=== PATIENT | male | born 1955 | race Caucasian/White ===

== ENCOUNTER 2019-01-11 11:28 | Observation (INO) ==
--- NOTE | 2019-01-11 11:51 | Emergency Department Note ---
Disposition Clinical Impression: MDS (myelodysplastic syndrome), History of venous thrombosis, Hematuria, On anticoagulant therapy, Ureteritis, Abnormal liver function tests, Flank pain, Elevated troponin, History of coronary artery disease Disposition: Admitted As Inpatient Time of Disposition: 19:03 General Adult HPI - General Chief complaint: ED Urogenital-Male Stated complaint: urinating blood Time Seen by Provider: 01/11/19 11:48 - History of Present Illness HPI Narrative: 63-year-old male reports emergency department with concerns for hematuria and right flank pain. He is anticoagulated on eloquis secondary prior venous thr ombus. He has a known history of myelodysplastic syndrome with [id number] disease per family. The patient denies any trauma vomiting diarrhea or bleeding of any other sort. There is no history of chest pain shortness of breath or fever he has no history of kidney stones. There is no history of acute headache slurred speech facial drooping or confusion. The patient reports significant right flank pain but no history of spinal pain or weakness or numbness in the legs reported. The pain started yesterday. No history of rash noted. Pain Scale: 5 - Related Data Home Medications Medication Instructions Recorded Confirmed Acyclovir [Zovirax] 800 mg PO 0700,0 12/27/16 01/11/19 Aspirin [Lo-Dose Aspirin EC] 81 [place] 69912/27/16 01/11/19 Fluconazole [Diflucan] 400 mg PO 00 12/27/16 01/11/19 Sirolimus [Rapamune] 0.5 mg PO 00 12/27/16 01/11/19 Sulfamethoxazole/Trimeth DS 2 tab PO MOFR 12/27/16 01/11/19 [Bactrim Ds] Apixaban [Eliquis] 5 mg PO 189901/11/19 01/11/19 Calcium Carbonate/Vitamin D3 [place] [address]/11/19 01/11/19 [Calcium 500-Vit D3 400 Chew Tb] Duloxetine HCl [Cymbalta] 60 mg PO 0700 01/11/19 01/11/19 Gabapentin [Neurontin] 800 mg PO 0700,1900 01/11/19 01/11/19 Metoprolol [Lopressor] 12.5 mg PO 0700,0 01/11/19 01/11/19 Mycophenolate Mofetil [Cellcept] 1,000 mg PO 0600,1800 01/11/19 01/11/19 Repaglinide [Prandin] 1 mg PO 0700,1900 01/11/19 01/11/19 Ursodiol 250 mg PO 0700,1000,1900 01/11/19 01/11/19 levETIRAcetam [Roweepra] 1,500 mg PO 0700,1900 01/11/19 01/11/19 metFORMIN [Glucophage] 1,000 mg PO BIDWM 01/11/19 01/11/19 predniSONE [PredniSONE] 40 mg PO 0700 01/11/19 01/11/19 Allergies Allergy/AdvReac Type Severity Reaction Status Date / Time divalproex sodium Allergy Confusion Verified 01/11/19 18:52 [From Depakote] Iodinated Contrast Media Allergy Seizure Verified 01/11/19 18:52 [Iodinated Contrast Media - IV Dye] Penicillins Allergy Rash Verified 01/11/19 18:52 All systems ED: reviewed and negative except as stated. Past Medical History - Past Medical History Medical history: Reports: atrial fibrillation, cancer, coronary artery disease, hyperlipidemia, hypertension, myocardial infarction, pulmonary embolus, seizures, other Surgical history: Reports: angioplasty/stent, coronary bypass (CABG), other Psychiatric history: Reports: anxiety, depression - Social History Smoking Status: Former smoker Smokeless Tobacco Status: No Alcohol use: Reports: none Drug use: Reports: none Physical Exam - General Limitations: no limitations General appearance: alert, other (The patient appears to be uncomfortable.) - Head Head exam: atraumatic, normocephalic, normal inspection - Eye Eye exam: Present: normal appearance, PERRL, EOMI - ENT ENT exam: normal exam, normal oropharynx, mucous membranes moist, TM's normal bi laterally, normal external ear exam - Neck Neck exam: Present: normal inspection, full ROM, trachea midline - Chest Chest inspection: Present: symmetric chest wall rise. Absent: tenderness - Respiratory Respiratory exam: Present: normal lung sounds bilaterally. Absent: respiratory distress, prolonged expiratory phase - Cardiovascular Cardiovascular exam: Present: regular rate, normal rhythm, normal heart sounds - Abdominal Exam Abdominal exam: Present: soft, tenderness, normal bowel sounds. Absent: distention, guarding, rebound, rigidity Abdominal tenderness: Present: RUQ, RLQ - Extremities Exam Extremities exam: Present: normal inspection, full ROM, normal capillary refill. Absent: tenderness, pedal edema, joint swelling, calf tenderness - Expanded Lower Extremity Exam Neurovascular/Tendon exam: Absent: normal capillary refill, pulse deficit, motor deficit, sensory deficit, tendon deficit, pallor - Back Exam Back exam: Present: normal inspection, full ROM, CVA tenderness (R). Absent: tenderness, CVA tenderness (L), vertebral tenderness, rashes - Neurological Exam Neurological exam: Present: alert, oriented X3, CN II-XII intact. Absent: motor sensory deficit - Psychiatric Psychiatric exam: Present: normal affect, normal mood - Skin Skin exam: Present: warm, dry, intact, normal color Course Vital Signs Temperature 97.9 F 01/11/19 11:31 Pulse Rate 72 01/11/19 11:31 Respiratory Rate 16 01/11/19 11:31 Blood Pressure 136/79 01/11/19 11:31 O2 Sat by Pulse Oximetry 98 01/11/19 11:31 Temperature 97.9 F 01/11/19 11:39 Pulse Rate 82 01/11/19 16:44 Respiratory Rate 17 01/11/19 16:44 Blood Pressure 139/81 01/11/19 16:44 O2 Sat by Pulse Oximetry 96 01/11/19 16:44 Oxygen Delivery Oxygen Delivery Room Air Medical Decision Making - MDM Narrative Medical decision making narrative: The patient states that he was recently treated with Bactrim after visiting an urgent care regarding UTI. He describe worsening with severe right flank pain and hematuria, he is known to be anticoagulated secondary to prior venous thrombus. He has a history of myelodysplastic syndrome with fbijj-[id number]-scna disease. CT abdomen and pelvis reveals what appears to be cystitis/ureteritis. Urinalysis notably abnormal. Blood cultures and urine cultures were sent. IV access was established pain control measures were initiated, IV antibiotics were infused. The patient's allergy lists penicillins but he states he has had penicillin prior without reaction. I discussed the case with the urologist keyboard action assembler Dr. Rowland regarding the patient's apparent failed outpatient therapy, persistent hematuria, and CT findings suggestive of ureteritis and/or cystitis, we both feel it would be appropriate to admit the patient to the hospital for further care under medical service with urology consultation. The patient's BUN is elevated and CO2 is low suggestive of potential dehydration. IV fluid was ordered. I discussed the case with the hospitalist on-call who has accepted the patient to their care. The patient is highly agreeable. He is currently stable pending admission. - Lab Data Lab results reviewed: Yes I reviewed the patient's lab results. Result diagrams: 01/11/19 11:51 01/11/19 11:51 Lab Results 01/11/19 01/11/19 01/11/19 Range/Units 11:42 11:51 11:51 WBC 9.8 (4.3-11.1) K/mcL RBC 4.46 (4.19-5.50) M/mcL Hgb 14.7 (12.9-16.9) g/dL Hct 43.7 (37.5-50.1) % MCV 98.0 (83.0-100.0) fL MCH 33.0 (28.0-33.3) pg MCHC 33.6 (31.6-35.5) g/dL RDW 13.7 (11.5-14.5) % Plt Count 221 (140-400) K/mcL MPV 10.2 (9.4-12.4) fL Immature Gran % 0.6 (0-4) % Seg Neutrophils % 61.6 % Lymphocytes % 27.8 % Monocytes % 9.7 % Eosinophils % 0.2 % Basophils % 0.1 % Neutrophils # 6.0 (1.6-8.9) K/mcL Lymphocytes # 2.7 (0.6-4.6) K/mcL Monocytes # 1.0 (0.0-1.3) K/mcL Eosinophils # 0.0 (0.0-0.6) K/mcL Basophils # 0.0 (0.0-0.2) K/mcL PT (9.4-12.1) Seconds INR APTT (26.0-36.0) Seconds Sodium 134 L (136-145) mEq/L Potassium 4.4 (3.5-5.1) mEq/L Chloride 103 (98-107) mEq/L Carbon Dioxide 18 L (23-29) mEq/L BUN 30 H (8-23) mg/dL Creatinine 1.24 (0.70-1.30) mg/dL Est GFR ( Amer) > 60 (> 60) Est GFR (Non-Af Amer) 59 L (> 60) BUN/Creatinine Ratio 24 (6-26) Glucose 124 H (70-105) mg/dL Calculated Osmolality 286 (280-300) Lactic Acid (0.5-2.2) mmol/L Calcium 10.0 (8.6-10.3) mg/dL Total Bilirubin 1.6 H (0.3-1.0) mg/dL Direct Bilirubin 0.9 H (0.0-0.2) mg/dL Indirect Bilirubin 0.7 (0.0-1.2) mg/dL AST 121 H (13-39) Units/L ALT 200 H (7-52) Units/L Alkaline Phosphatase 292 H (34-104) Units/L Troponin I 0.05 H* (< 0.04) ng/mL Serum Total Protein 6.9 (6.4-8.9) g/dL Albumin 4.1 (3.5-5.7) g/dL Globulin 2.8 (2.4-3.5) g/dL Albumin/Globulin Ratio 1.5 (1.1-2.2) Urine Color Red A (Yellow) Urine Clarity Cloudy A (Clear) Urine pH 6.5 (5.0-8.0) pH Units Ur Specific [place] 1.021 (1.010-1.025) Urine Protein >=1000 H (Neg-Trace) mg/dL Urine Glucose (UA) 100 H (Normal) mg/dL Urine Ketones Negative (Negative) mg/dL Urine Blood Large H (Negative) Urine Nitrite Negative (Negative) Urine Bilirubin Small H (Negative) Urine Urobilinogen Normal (Normal) mg/dL Ur Leukocyte Esterase Small H (Negative) Urine Microscopic RBC TNTC H (0-3) per hpf Urine Microscopic WBC 5-15 H (0-3) per hpf Ur Squamous Epith Cells Few (None-Few) per lpf Ur Culture Indicated? YES A (NO) 01/11/19 01/11/19 Range/Units 11:51 12:01 WBC (4.3-11.1) K/mcL RBC (4.19-5.50) M/mcL Hgb (12.9-16.9) g/dL Hct (37.5-50.1) % MCV (83.0-100.0) fL MCH (28.0-33.3) pg MCHC (31.6-35.5) g/dL RDW (11.5-14.5) % Plt Count (140-400) K/mcL MPV (9.4-12.4) fL Immature Gran % (0-4) % Seg Neutrophils % % Lymphocytes % % Monocytes % % Eosinophils % % Basophils % % Neutrophils # (1.6-8.9) K/mcL Lymphocytes # (0.6-4.6) K/mcL Monocytes # (0.0-1.3) K/mcL Eosinophils # (0.0-0.6) K/mcL Basophils # (0.0-0.2) K/mcL PT 11.0 (9.4-12.1) Seconds INR 1.0 APTT 36.8 H (26.0-36.0) Seconds Sodium (136-145) mEq/L Potassium (3.5-5.1) mEq/L Chloride (98-107) mEq/L Carbon Dioxide (23-29) mEq/L BUN (8-23) mg/dL Creatinine (0.70-1.30) mg/dL Est GFR ( Amer) (> 60) Est GFR (Non-Af Amer) (> 60) BUN/Creatinine Ratio (6-26) Glucose (70-105) mg/dL Calculated Osmolality (280-300) Lactic Acid 2.0 (0.5-2.2) mmol/L Calcium (8.6-10.3) mg/dL Total Bilirubin (0.3-1.0) mg/dL Direct Bilirubin (0.0-0.2) mg/dL Indirect Bilirubin (0.0-1.2) mg/dL AST (13-39) Units/L ALT (7-52) Units/L Alkaline Phosphatase (34-104) Units/L Troponin I (< 0.04) ng/mL Serum Total Protein (6.4-8.9) g/dL Albumin (3.5-5.7) g/dL Globulin (2.4-3.5) g/dL Albumin/Globulin Ratio (1.1-2.2) Urine Color (Yellow) Urine Clarity (Clear) Urine pH (5.0-8.0) pH Units Ur Specific [place] (1.010-1.025) Urine Protein (Neg-Trace) mg/dL Urine Glucose (UA) (Normal) mg/dL Urine Ketones (Negative) mg/dL Urine Blood (Negative) Urine Nitrite (Negative) Urine Bilirubin (Negative) Urine Urobilinogen (Normal) mg/dL Ur Leukocyte Esterase (Negative) Urine Microscopic RBC (0-3) per hpf Urine Microscopic WBC (0-3) per hpf Ur Squamous Epith Cells (None-Few) per lpf Ur Culture Indicated? (NO) - Radiology Data Radiology results reviewed: Yes I reviewed the patient's radiology results.
[2019-01-11 12:03] LABS: Bilirubin,Urine Small (Negative); Blood,Urine Large (Negative); Glucose,Urine (UA) 100 mg/dL (Normal); Ketones,Urine Negative (Negative); Leukocyte Esterase,Urine Small (Negative); Nitrite,Urine Negative (Negative); PH,Urine 6.5 pH Units (5.0-8.0); Protein,Urine >=1000 mg/dL (Neg-Trace); Specific Gravity,Urine 1.021 (1.010-1.025); Urobilinogen,Urine Normal (Normal)
[2019-01-11 12:05] LABS: Clarity,Urine Cloudy (Clear); Color,Urine Red (Yellow)
[2019-01-11 12:06] LABS: RBC,Urine TNTC per hpf (0-3); Squamous Epithelial Cell,Urine Few per lpf (None-Few)
[2019-01-11 12:09] LABS: Basophils % 0.1 %; Eosinophils % 0.2 %; Hematocrit 43.7 % (37.5-50.1); Hemoglobin 14.7 g/dL (12.9-16.9); Immature Granulocytes % 0.6 % (0-4); Lymphocytes # 2.7 K/mcL (0.6-4.6); Lymphocytes % 27.8 %; Mean Corpuscular HGB Conc 33.6 g/dL (31.6-35.5); Mean Platelet Volume 10.2 fL (9.4-12.4); Monocytes % 9.7 %; Platelet Count 221 K/mcL (140-400); Red Blood Count 4.46 M/mcL (4.19-5.50); Red Cell Distribution Width 13.7 % (11.5-14.5); Segmented Neutrophils % 61.6 %; White Blood Count 9.8 K/mcL (4.3-11.1)
[2019-01-11 12:19] LABS: Activated Partial Thrombo Time 36.8 Seconds (26.0-36.0)
[2019-01-11] MEDS ORDERED: *HR* HYDROmorphone (PF) 1 MG/ML SYRINGE IVP ONE (12:19)
[2019-01-11] MEDS ORDERED: Ondansetron 4 MG/2 ML VIAL IVP ONE (12:20)
[2019-01-11 12:26] LABS: Alanine Aminotransferase 200 Units/L (7-52); Albumin 4.1 g/dL (3.5-5.7); Albumin/Globulin Ratio 1.5 (1.1-2.2); Alkaline Phosphatase 292 Units/L (34-104); Aspartate Amino Transferase 121 Units/L (13-39); BUN/Creatinine Ratio 24 (6-26); Bilirubin,Direct 0.9 mg/dL (0.0-0.2); Bilirubin,Indirect 0.7 mg/dL (0.0-1.2); Bilirubin,Total 1.6 mg/dL (0.3-1.0); Blood Urea Nitrogen 30 mg/dL (8-23); Carbon Dioxide 18 mEq/L (23-29); Chloride 103 mEq/L (98-107); Globulin 2.8 g/dL (2.4-3.5); Glucose 124 mg/dL (70-105); Osmolality,Calculated 286 (280-300); Potassium 4.4 mEq/L (3.5-5.1); Sodium 134 mEq/L (136-145); Total Protein 6.9 g/dL (6.4-8.9); eGFR For African Americans > 60 (> 60); eGFR For Non-African Americans 59 (> 60)
[2019-01-11 13:01] LABS: Troponin I 0.05 ng/mL (< 0.04)
[2019-01-11] MEDS ORDERED: cefTRIAXone 1,000 MG in Water for inj. (sterile) 10 ML IVP ONE (15:04)
--- NOTE | 2019-01-11 15:54 | Internal Med History&Physical ---
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 Blood in urine started 6 days ago (last ), at same time of mild dysuria. Patient denies ever seeing any clots, but does state that dysuria/burning has increased in intensity and he's noticed feeling like having to urinate numerous times day and night but only a little comes out. Seems dark red to dark brown tea/coffee colored urine. No fevers. Pain did start to move over to his right side and back on Thursday, so his daughter made him go to urgent In the ED, vitals T97.9, HR 70s, RR 16, SBP 110-140s, satting 96+% on RA. Labs notable for wbc 10, hb 15, plt 220, inr 1, na 134, co2 18, bun 30, cr 1.24, Tbili 1.6, Dbili 0.9 CT a/p suggests cystitis w R-sided ureteritis. PMH: as above PSH: cervical fusion, cabg, a-fib ablation SH: former smoker, disabled FH: female organ cancer in mother, colon cancer in father Past Med Surg Social Fam HX - Past Medical History Medical history: atrial fibrillation, cancer, coronary artery disease, hyperlipidemia, hypertension, myocardial infarction, pulmonary embolus, seizures, other Additional medical history: sinus ronda cardia Psychiatric history: anxiety, depression - Past Surgical History Surgical History: angioplasty/stent, coronary bypass (CABG), other Additional surgical history: STEM CELL PLACEMENT - Social History Smoking Status: Former smoker Smokeless Tobacco Status: No Alcohol use: none Drug use: none Internal Medicine - H&P: Meds Acyclovir [Zovirax] 800 mg PO BID 12/27/16 [History] Aspirin [Lo-Dose Aspirin EC] 81 mg PO DAILY 12/27/16 [History] Fluconazole [Diflucan] 400 mg PO DAILY 12/27/16 [History] Gabapentin [Neurontin] 400 mg PO BID 12/27/16 [History] Sirolimus [Rapamune] 0.5 mg PO QAM 12/27/16 [History] Sulfamethoxazole/Trimeth DS [Bactrim Ds] 1 tab PO MOFR 12/27/16 [History] predniSONE [PredniSONE] 40 mg PO DAILY 12/27/16 [History] Apixaban [Eliquis] 5 mg PO BID 01/11/19 [History] Calcium Carbonate/Vitamin D3 [Calcium Petites Softgel] 01/11/19 [History] Duloxetine HCl [Cymbalta] 60 mg PO DAILY 01/11/19 [History] Insulin Glargine,Hum.rec.anlog [Toujeo Solostar] 20 units SQ QPM 01/11/19 [History] Loratadine [Claritin] 10 mg PO DAILY 01/11/19 [History] Metoprolol [Lopressor] 12.5 mg PO BID 01/11/19 [History] Repaglinide [Prandin] 2 mg PO TIDWM 01/11/19 [History] Umeclidinium Brm/Vilanterol Tr [Anoro Ellipta 62.5-25 Mcg INH] 1 each IH DAILY 01/11/19 [History] Ursodiol 250 mg PO TID 01/11/19 [History] levETIRAcetam [Roweepra] 1,500 mg PO BID 01/11/19 [History] metFORMIN [Glucophage] 1,000 mg PO BIDWM 01/11/19 [History] Allergy/AdvReac Type Severity Reaction Status Date / Time Iodinated Contrast Media Allergy Rash Verified 01/11/19 11:33 [Iodinated Contrast Media - IV Dye] Penicillins Allergy Rash Verified 01/11/19 11:33 All Systems PM: A 10-system review of systems was performed and is negative for pertinent findings except as documented above in the HPI. - Constitutional Vitals: Temp Pulse Resp BP Pulse Ox 97.9 F 76 16 111/83 96 01/11/19 11:39 01/11/19 15:11 01/11/19 15:11 01/11/19 15:11 01/11/19 15:11 Exam: General: NAD, good eye contact, chronically ill appearing, wearing sunglasses Head: Atraumatic, normocephalic. Face symmetric Eyes: EOMI, sclerae w mild icterus and injection ENT: Mucous membranes moist. Normal oral mucosa. Trachea midline. No cervical lymphadenopathy. Thoracic: No visible chest wall deformities. Normal breath sounds b/l, no wheezing or crackles Cardio: Normal S1 and S2, regular rate and rhythm. Does have faint systolic murmur Abdomen: Soft, mildly tender RLQ, nondistended. Bowel sounds present. No rebound. No HSM Extremities: Warm, well perfused. DP pulses 2+ b/l. No clubbing, cyanosis. No edema Skin: Intact. No rashes, bruises, or ulcers Neuro: Awake, fully oriented. Good memory, concentration, attention. Speech fluent. CN II-XII grossly intact. Strength 5/5 in b/l UE and LE Internal Med - H&P Results - Labs CBC & Chem 7: 01/11/19 11:51 01/11/19 11:51 Labs: Short CBC 01/11/19 Range/Units 11:51 WBC 9.8 (4.3-11.1) K/mcL Hgb 14.7 (12.9-16.9) g/dL Hct 43.7 (37.5-50.1) % Plt Count 221 (140-400) K/mcL Neutrophils # 6.0 (1.6-8.9) K/mcL BMP 01/11/19 11:51 Sodium 134 L Potassium 4.4 Chloride 103 Carbon Dioxide 18 L BUN 30 H Creatinine 1.24 Glucose 124 H Calcium 10.0 Cardiac Enzymes 01/11/19 Range/Units 11:51 Troponin I 0.05 H* (< 0.04) ng/mL Liver Function 01/11/19 Range/Units 11:51 Total Bilirubin 1.6 H (0.3-1.0) mg/dL Direct Bilirubin 0.9 H (0.0-0.2) mg/dL AST 121 H (13-39) Units/L ALT 200 H (7-52) Units/L Alkaline Phosphatase 292 H (34-104) Units/L Albumin 4.1 (3.5-5.7) g/dL Urine 01/11/19 Range/Units 11:42 Urine Color Red A (Yellow) Urine Clarity Cloudy A (Clear) Urine pH 6.5 (5.0-8.0) pH Units Ur Specific [place] 1.021 (1.010-1.025) Urine Protein >=1000 H (Neg-Trace) mg/dL Urine Glucose (UA) 100 H (Normal) mg/dL - Impressions ITS Impressions Chest X-Ray 01/11/19 13:31 IMPRESSION: No acute cardiopulmonary disease. D/ / Ivania Nunn MD / Ivania Nunn MD Interpreting Provider: Ivania Nunn MD Abdomen/Pelvis CT 01/11/19 13:39 IMPRESSION: Findings suggesting cystitis with right-sided ureteritis. 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 Hematuria: CT suggestive of cystitis/ureteritis, UA equivocal, and with symptoms definitely suggesting complicated UTI as cause. Less likely manifestation of GVH (less commonly renal and usually nephritis). - UCx - Rocephin 1g daily - continue eliquis - NS 1L bolus then MIVF - Onc consult Anion gap metabolic acidosis: HCO3 18, gap 13, lactate up to 2 but no hypotension/hypoxia/hypoglycemia. 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
[2019-01-11] MEDS ORDERED: 0.9 % Sodium Chloride 1,000 ML IVC ONE (16:13)
[2019-01-11] MEDS ORDERED: Naloxone 0.4 MG/ML INJ IVP PRN (16:17)
[2019-01-11] MEDS ORDERED: Acetaminophen 325 MG TABLET PO PRN (16:17)
[2019-01-11] MEDS ORDERED: Ondansetron 4 MG/2 ML VIAL IVP PRN (16:17)
[2019-01-11 19:51] LABS: Acetaminophen < 10 mcg/mL (10-20); Lipase 111 Units/L (11-82)
[2019-01-11 20:16] LABS: Hepatitis B Surface Antigen Nonreactive (Nonreactive)
[2019-01-11] MEDS ORDERED: Dextrose Gel 15 GM/37.5 ML TUBE PO PRN ×2 (20:44)
[2019-01-11] MEDS ORDERED: *HR* Dextrose 50 % in Water (Syg) 50 ML SYRINGE IVP PRN (20:44)
[2019-01-11] MEDS ORDERED: D5% in Water 1,000 ML IVC PRN (20:44)
[2019-01-11 20:45] LABS: Hepatitis B Core IgM Nonreactive (Nonreactive); Hepatitis C Virus Antibody Nonreactive (Nonreactive)
[2019-01-11 20:46] LABS: Hepatitis A Antibody IgM Nonreactive (Nonreactive)
[2019-01-11] MEDS ORDERED: traMADol 50 MG TABLET PO ONE (20:47)
[2019-01-11] MEDS: levETIRAcetam 250 MG TABLET PO SCH (21:32)
[2019-01-11] MEDS: Apixaban 5 MG TABLET PO SCH (21:33)
[2019-01-11] MEDS: Gabapentin 400 MG CAPSULE PO SCH (21:33)
[2019-01-11] MEDS: Insulin LISPRO 300 UNITS/3 ML VIAL SQ SCH (21:34)
[2019-01-11] MEDS: Insulin DETEMIR 100 UNIT/ML X5UNITS SQ SCH (21:34)
[2019-01-11] MEDS: 0.9 % Sodium Chloride 1,000 ML IVC SCH (21:37)
[2019-01-12] MEDS ORDERED: traMADol 50 MG TABLET PO ONE (02:12)
[2019-01-12 04:39] LABS: Hematocrit 40.5 % (37.5-50.1); Hemoglobin 13.4 g/dL (12.9-16.9); Mean Corpuscular HGB Conc 33.1 g/dL (31.6-35.5); Mean Corpuscular Hemoglobin 32.8 pg (28.0-33.3); Mean Corpuscular Volume 99.3 fL (83.0-100.0); Mean Platelet Volume 10.4 fL (9.4-12.4); Platelet Count 184 K/mcL (140-400); Red Blood Count 4.08 M/mcL (4.19-5.50); Red Cell Distribution Width 13.8 % (11.5-14.5)
[2019-01-12 04:46] LABS: Prothrombin Time 11.4 Seconds (9.4-12.1)
[2019-01-12 05:02] LABS: Alanine Aminotransferase 163 Units/L (7-52); Albumin 3.5 g/dL (3.5-5.7); Albumin/Globulin Ratio 1.5 (1.1-2.2); Alkaline Phosphatase 254 Units/L (34-104); Aspartate Amino Transferase 95 Units/L (13-39); BUN/Creatinine Ratio 28 (6-26); Bilirubin,Direct 0.6 mg/dL (0.0-0.2); Bilirubin,Indirect 0.6 mg/dL (0.0-1.2); Bilirubin,Total 1.2 mg/dL (0.3-1.0); Blood Urea Nitrogen 29 mg/dL (8-23); Calcium 9.1 mg/dL (8.6-10.3); Carbon Dioxide 19 mEq/L (23-29); Chloride 105 mEq/L (98-107); Globulin 2.4 g/dL (2.4-3.5); Glucose 154 mg/dL (70-105); Osmolality,Calculated 293 (280-300); Potassium 3.9 mEq/L (3.5-5.1); Sodium 137 mEq/L (136-145); Total Protein 5.9 g/dL (6.4-8.9); Troponin I 0.03 ng/mL (< 0.04); eGFR For African Americans > 60 (> 60); eGFR For Non-African Americans > 60 (> 60)
[2019-01-12] MEDS: 0.9 % Sodium Chloride 1,000 ML IVC SCH (05:20)
[2019-01-12] MEDS ORDERED: 0.9 % Sodium Chloride 500 ML IVC ONE (07:42)
--- NOTE | 2019-01-12 07:47 | Internal Med Progress Note ---
Hospitalist Progress Note - Encounter Date of Encounter: 01/12/19 Time of Encounter: 07:45 - Subjective Interval History: Patient feels relatively well today. Did have some ongoing mild RLQ pain improved w tramadol. Still has dark urine and urgency although no clots and no fevers. No SOB, CP, leg swelling, N/V/D. - Exam Vitals: Temp Pulse Resp BP Pulse Ox 97.8 F 69 17 105/64 98 01/12/19 06:56 01/12/19 06:56 01/12/19 06:56 01/12/19 06:56 01/12/19 06:56 Exam: General: NAD, good eye contact, chronically ill appearing, wearing sunglasses Thoracic: Normal breath sounds b/l, no wheezing or crackles Cardio: Normal S1 and S2, regular rate and rhythm. Does have faint systolic murmur Abdomen: Soft, mildly tender RLQ, nondistended Extremities: Warm, well perfused. DP pulses 2+ b/l. No edema Skin: Intact. No rashes, bruises, or ulcers Neuro: Awake, fully oriented. Good memory, concentration, attention. Speech fluent. 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 Hematuria: CT suggestive of cystitis/ureteritis, UA equivocal, and with symptoms definitely suggesting complicated UTI as cause. Less likely manifestation of GVH (less commonly renal and usually nephritis). Urine still dark today although no clots and not grossly bloody (is tea colored) - UCx pending - Rocephin 1g daily - continue eliquis - Onc consult Anion gap metabolic acidosis: still gap 13 and lactate 2 despite no hypo tension/hypoxia/hypoglycemia and after fluid bolus and maintenance and improving AD - will give additional 500cc bolus, continue MIVF, and trend lactate today AD: Baseline Cr ~0.6-0.7, on admit was 1.25, suspect 2/2 bactrim. Improving today. - stop bactrim and monitor Direct hyperbilirubinemia: w elevated alkphos and transaminitis 200/120, CT a/p w/o mention of hepatic or biliary ductal abnormality, has known GVH. RUQ US showing normal echogenicity of liver, no ductal dilation. 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 - hold acyclovir and fluconazole for now - continue prednisone 40 (slow taper per [facility]), rapamune 0.5 daily, and myfortic 1k bid - home ursodiol CAD s/p CABG, HLD, CVA: home ASA, DM2: home insulin, +SSI HTN: SBP 130-140s, home lopressor Epilepsy: home keppra 1.5k bid A-Flutter: AC on eliquis, rate on lopressor 12.5 bid Hx PE: remote Anx/dep: home Chronic pain s/p cervical fusion: home gabapentin 400 bid, Obesity: BMI 30 PPx: SCDs Tele: no Activity: up ad shyanne FEN: ADA, MIVF NS@125 Lines: PIV Consults: Onc Code: Full Dispo: obs for complicated UTI causing hematuria and gap acidosis, anticipate 1- 2 days, will be homegoing Internal Medicine: Result - Labs CBC & Chem 7: 01/12/19 04:20 01/12/19 04:20 Labs: Short CBC 01/11/19 01/12/19 Range/Units 11:51 04:20 WBC 9.8 10.0 (4.3-11.1) K/mcL Hgb 14.7 13.4 (12.9-16.9) g/dL Hct 43.7 40.5 (37.5-50.1) % Plt Count 221 184 (140-400) K/mcL Neutrophils # 6.0 (1.6-8.9) K/mcL BMP 01/11/19 01/12/19 11:51 04:20 Sodium 134 L 137 Potassium 4.4 3.9 Chloride 103 105 Carbon Dioxide 18 L 19 L BUN 30 H 29 H Creatinine 1.24 1.02 Glucose 124 H 154 H Calcium 10.0 9.1 Cardiac Enzymes 01/11/19 01/12/19 Range/Units 11:51 04:20 Troponin I 0.05 H* 0.03 (< 0.04) ng/mL Liver Function 01/11/19 01/12/19 Range/Units 11:51 04:20 Total Bilirubin 1.6 H 1.2 H (0.3-1.0) mg/dL Direct Bilirubin 0.9 H 0.6 H (0.0-0.2) mg/dL AST 121 H 95 H (13-39) Units/L ALT 200 H 163 H (7-52) Units/L Alkaline Phosphatase 292 H 254 H (34-104) Units/L Albumin 4.1 3.5 (3.5-5.7) g/dL Urine 01/11/19 Range/Units 11:42 Urine Color Red A (Yellow) Urine Clarity Cloudy A (Clear) Urine pH 6.5 (5.0-8.0) pH Units Ur Specific [place] 1.021 (1.010-1.025) Urine Protein >=1000 H (Neg-Trace) mg/dL Urine Glucose (UA) 100 H (Normal) mg/dL - ABG Interpretation ABG results: PT/INR, D-dimer PT 11.4 Seconds (9.4-12.1) 01/12/19 04:20 - Impressions Impressions Chest X-Ray 01/11/19 13:31 IMPRESSION: No acute cardiopulmonary disease. D/ / Ivania Nunn MD / Ivania Nunn MD Interpreting Provider: Ivania Nunn MD Abdomen/Pelvis CT 01/11/19 13:39 IMPRESSION: Findings suggesting cystitis with right-sided ureteritis. Correlate with any clinical findings of urinary infection D/ / Richard Bahena MD / Richard Bahena MD Interpreting Provider: Richard Bahena MD Liver Ultrasound 01/11/19 19:41 IMPRESSION: Gallbladder wall thickening. No additional signs of acute cholecystitis. Findings are indeterminate. There is concern for acute cholecystitis. Hepatic biliary scan may be helpful for further evaluation. Multiple gallbladder wall polyps measuring up to 7 mm. Consider follow-up versus potential cholecystectomy. D/ / 01/11/2019 19:51:17 Asael Rubio MD / dasha Interpreting Provider: Asael Rubio MD Consult Discharge Plan - Plan Referrals: Josse Alfonso DO [Primary Care Provider] -
[2019-01-12] MEDS ORDERED: NON-FORMULARY MEDICATION 1 EACH EACH (Umeclidinium Brm/Vilanterol Tr [Anoro Ellipta 62.5-2 IH SCH (09:00)
[2019-01-12] MEDS: levETIRAcetam 250 MG TABLET PO SCH ×2 (09:19→21:07)
[2019-01-12] MEDS: Aspirin Enteric Coated 81 MG Tablet PO SCH (09:19)
[2019-01-12] MEDS: predniSONE 20 MG TABLET PO SCH (09:22)
[2019-01-12] MEDS: Apixaban 5 MG TABLET PO SCH ×2 (09:23→21:06)
[2019-01-12] MEDS: Loratadine 10 MG TABLET PO SCH (09:23)
[2019-01-12] MEDS: Gabapentin 400 MG CAPSULE PO SCH ×2 (09:24→21:06)
[2019-01-12] MEDS: cefTRIAXone 1,000 MG in Water for inj. (sterile) 10 ML IVP SCH (09:24)
[2019-01-12] MEDS: Insulin LISPRO 300 UNITS/3 ML VIAL SQ SCH ×4 (09:38→17:46)
[2019-01-12] MEDS ORDERED: Acetaminophen 325 MG TABLET PO PRN (10:29)
[2019-01-12] MEDS ORDERED: traMADol 50 MG TABLET PO PRN (10:29)
--- NOTE | 2019-01-12 10:31 | Electrocardiograph Report ---
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
--- NOTE | 2019-01-12 12:46 | Oncology Inp Consult Note ---
<Marilynn Griffin - Last Filed: 01/12/19 15:51> Date of Encounter: 01/12/19 Time of Encounter: 12:43 Assessment and Plan (1) MDS (myelodysplastic syndrome) Status: Acute Assessment and plan: Follows with Dr. Dutta at [facility] with next appointment on 01/18/19. 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 Notes that is at home and should receive JAKAFI today. Plan: Continue home medications: Cellcept, prednisone, sirolimus, and urosidol Patient's prophylaxis with acyclovir and fluconazole on hold due to AD. Resume with improvement in kidney function. (2) Hematuria Status: Acute Assessment and plan: Presented with hematuria and abdominal pain and history of GVHD Plan: Check BK virus, CMV, and adenovirus PCR Qualifiers: Qualified Code(s): R31.9 - Hematuria, unspecified - Data of Consult Patient: new to practice Consult date: 01/11/19 Requesting Physician: Brenton Toribio Primary Care Provider: Josse Alfonso DO - Consult Narrative Reason for consult: MDS s/p SCT 2017, GVHD ocular/liver, now with hematuria History of present illness: Dread Alfonso, a 63 male with . He presented to the emergency room on 01/11/19 due to concerns for dark red and tea-colored urine, RLQ abdominal pain, urinary frequency, and dysuria. He denies fever, chills, or night sweats. He denies nausea, vomiting, diarrhea, or constipation. He has a history of DM2 and blood sugars have been elevated with prednisone. He notes chronic peripheral n europathy. Oncology was consulted on 01/11/19 due to Mr. Alfonso's history of MDS s/p peripheral blood stem cell transplant at [facility] on 10/13/16 and GVHD (ocular and liver) diagnosed this summer with increased LFt's and bilirubin in Aug, 2018 and liver biopsy on 10/12/18. He is continues on prednisone 40 mg PO daily, Cellcept 1000 mg PO BID, and sirolimus 0.5 mg PO daily for immunosu ppression. [facility] plans to wean steroids once patient has JAKAFI (ruxolitinib) for acute GVHD. He is also taking ursodiol and is using his home dose while hospitalized. He is waiting for LOLISI to be delivered to his home this afternoon and is planned to follow-up at [facility] (Dr. Dutta) on Friday, January 18, 2019. Prophylaxis: Bactrim, acyclovir, and fluconazole Social: Denies alcohol use. Former smoker. No current tobacco use. Denies illicit drug use. Lives in [place], [place] with his Past Med Surg Social Fam HX - Past Medical History Medical history: atrial fibrillation, cancer, coronary artery disease, hyperlipidemia, hypertension, myocardial infarction, pulmonary embolus, seizures, other Additional medical history: Wears sunglasses per doctor d/t eye issues with MDS "feels like sand in eyes" Psychiatric history: anxiety, depression - Past Surgical History Surgical History: angioplasty/stent, coronary bypass (CABG), other Additional surgical history: STEM CELL PLACEMENT - Social History Smoking Status: Former smoker Smokeless Tobacco Status: No Alcohol use: none Drug use: none Medications and Allergies Acyclovir [Zovirax] 800 mg PO 0700,189912/27/16 [History] Aspirin [Lo-Dose Aspirin EC] 81 [place] 69912/27/16 [History] Fluconazole [Diflucan] 400 [place] 69912/27/16 [History] Sirolimus [Rapamune] 0.5 mg PO 69912/27/16 [History] Sulfamethoxazole/Trimeth DS [Bactrim Ds] 2 tab PO MOFR 12/27/16 [History] Apixaban [Eliquis] 5 mg PO 189901/11/19 [History] Calcium Carbonate/Vitamin D3 [Calcium 500-Vit D3 400 Chew Tb] 1 tab PO 69901/11/19 [History] Duloxetine HCl [Cymbalta] 60 mg PO 69901/11/19 [History] Gabapentin [Neurontin] 800 mg PO 0700,189901/11/19 [History] Metoprolol [Lopressor] 12.5 mg PO 0700,189901/11/19 [History] Mycophenolate Mofetil [Cellcept] 1,000 mg PO 0600,1800 01/11/19 [History] Repaglinide [Prandin] 1 mg PO 0700,1900 01/11/19 [History] Ursodiol 250 mg PO 0700,1000,1900 01/11/19 [History] levETIRAcetam [Roweepra] 1,500 mg PO 0700,1900 01/11/19 [History] metFORMIN [Glucophage] 1,000 mg PO BIDWM 01/11/19 [History] predniSONE [PredniSONE] 40 mg PO 0700 01/11/19 [History] Allergy/AdvReac Type Severity Reaction Status Date / Time divalproex sodium Allergy Confusion Verified 01/11/19 18:52 [From Depakote] Iodinated Contrast Media Allergy Seizure Verified 01/11/19 18:52 [Iodinated Contrast Media - IV Dye] Penicillins Allergy Rash Verified 01/11/19 18:52 Constitutional: Present: fatigue, increased appetite. Absent: chills, fever(s) Eyes: Present: photophobia Cardiovascular: Absent: chest pain Respiratory: Absent: cough, dyspnea Gastrointestinal: Present: abdominal pain. Absent: constipation, diarrhea, hematemesis, hematochezia, melena, nausea, vomiting Genitourinary: Present: dysuria, urinary frequency Neurological: Present: numbness. Absent: syncope Hematologic/Lymphatic: Absent: lymphadenopathy Oncology - Exam - Head Head exam: Present: normal inspection, normocephalic - Eye Additional comments: wearing sunglasses - Respiratory Respiratory exam: Present: decreased breath sounds, CTAB - Cardiovascular Cardiovascular exam: Present: irregular rhythm, RRR - GI/Abdominal GI/Abdominal exam: Present: normal bowel sounds, soft. Absent: tenderness - Additional comments: hematuria - Extremities Exam Extremities exam: Absent: pedal edema, tenderness - Neurological Exam Neurological exam: Present: alert, oriented X3 - Psychiatric Psychiatric exam: Present: normal affect, normal mood - Skin Skin exam: Present: dry, warm Oncology Inpatient Results Labs: Laboratory Results - last 24 hr 01/11/19 01/11/19 01/11/19 11:51 11:51 20:27 WBC RBC Hgb Hct MCV MCH MCHC RDW Plt Count MPV PT INR Sodium 134 L Potassium 4.4 Chloride 103 Carbon Dioxide 18 L BUN 30 H Creatinine 1.24 Est GFR ( Amer) > 60 Est GFR (Non-Af Amer) 59 L BUN/Creatinine Ratio 24 Glucose 124 H POC Glucose 203 H Calculated Osmolality 286 Lactic Acid Calcium 10.0 Magnesium Total Bilirubin 1.6 H Direct Bilirubin 0.9 H Indirect Bilirubin 0.7 AST 121 H ALT 200 H Alkaline Phosphatase 292 H Troponin I 0.05 H* Serum Total Protein 6.9 Albumin 4.1 Globulin 2.8 Albumin/Globulin Ratio 1.5 Lipase 111 H Beta-Hydroxybutyric Acd Acetaminophen < 10 L Hepatitis A IgM Ab Nonreactive Hep Bs Antigen Nonreactive Hep B Core IgM Ab Nonreactive Hepatitis C Ab Screen Nonreactive 01/12/19 01/12/19 01/12/19 04:20 04:20 04:20 WBC 10.0 RBC 4.08 L Hgb 13.4 Hct 40.5 MCV 99.3 MCH 32.8 MCHC 33.1 RDW 13.8 Plt Count 184 MPV 10.4 PT 11.4 INR 1.0 Sodium 137 Potassium 3.9 Chloride 105 Carbon Dioxide 19 L BUN 29 H Creatinine 1.02 Est GFR ( Amer) > 60 Est GFR (Non-Af Amer) > 60 BUN/Creatinine Ratio 28 H Glucose 154 H POC Glucose Calculated Osmolality 293 Lactic Acid Calcium 9.1 Magnesium 2.0 Total Bilirubin 1.2 H Direct Bilirubin 0.6 H Indirect Bilirubin 0.6 AST 95 H ALT 163 H Alkaline Phosphatase 254 H Troponin I 0.03 Serum Total Protein 5.9 L Albumin 3.5 Globulin 2.4 Albumin/Globulin Ratio 1.5 Lipase Beta-Hydroxybutyric Acd Acetaminophen Hepatitis A IgM Ab Hep Bs Antigen Hep B Core IgM Ab Hepatitis C Ab Screen 01/12/19 01/12/19 01/12/19 04:20 08:05 12:21 WBC RBC Hgb Hct MCV MCH MCHC RDW Plt Count MPV PT INR Sodium Potassium Chloride Carbon Dioxide BUN Creatinine Est GFR ( Amer) Est GFR (Non-Af Amer) BUN/Creatinine Ratio Glucose POC Glucose Calculated Osmolality Lactic Acid 2.3 H 1.2 1.5 Calcium Magnesium Total Bilirubin Direct Bilirubin Indirect Bilirubin AST ALT Alkaline Phosphatase Troponin I Serum Total Protein Albumin Globulin Albumin/Globulin Ratio Lipase Beta-Hydroxybutyric Acd Acetaminophen Hepatitis A IgM Ab Hep Bs Antigen Hep B Core IgM Ab Hepatitis C Ab Screen 01/12/19 01/12/19 12:21 12:21 WBC RBC Hgb Hct MCV MCH MCHC RDW Plt Count MPV PT INR Sodium 137 Potassium 4.0 Chloride 106 Carbon Dioxide 20 L BUN 29 H Creatinine 1.06 Est GFR ( Amer) > 60 Est GFR (Non-Af Amer) > 60 BUN/Creatinine Ratio 27 H Glucose 181 H POC Glucose Calculated Osmolality 294 Lactic Acid Calcium 8.7 Magnesium Total Bilirubin Direct Bilirubin Indirect Bilirubin AST ALT Alkaline Phosphatase Troponin I Serum Total Protein Albumin Globulin Albumin/Globulin Ratio Lipase Beta-Hydroxybutyric Acd 0.17 Acetaminophen Hepatitis A IgM Ab Hep Bs Antigen Hep B Core IgM Ab Hepatitis C Ab Screen Chest X-Ray 01/11/19 13:31 IMPRESSION: No acute cardiopulmonary disease. D/ / Ivania Nunn MD / Ivania Nunn MD Interpreting Provider: Ivania Nunn MD Abdomen/Pelvis CT 01/11/19 13:39 IMPRESSION: Findings suggesting cystitis with right-sided ureteritis. Correlate with any clinical findings of urinary infection D/ / Richard Bahena MD / Richard Bahena MD Interpreting Provider: Richard Bahena MD Liver Ultrasound 01/11/19 19:41 IMPRESSION: Gallbladder wall thickening. No additional signs of acute cholecystitis. Findings are indeterminate. There is concern for acute cholecystitis. Hepatic biliary scan may be helpful for further evaluation. Multiple gallbladder wall polyps measuring up to 7 mm. Consider follow-up versus potential cholecystectomy. D/ / 01/11/2019 19:51:17 Asael Rubio MD / dasha Interpreting Provider: Asael Rubio MD Consult Discharge Plan - Plan Referrals: Josse Alfonso DO [Primary Care Provider] - Inpatient Charges Provider: Dr. Norris Cabral <Coleman Cabral - Last Filed: 01/12/19 17:18> Date of Encounter: 01/12/19 - Data of Consult Requesting Physician: Brenton Toribio Primary Care Provider: Josse Alfonso DO - Consult Narrative History of present illness: Patient interviewed bedside, hx of MDS s/p RX and SCT at [facility] '17, recent f/u notes revieewd With GVHD liver and eyes, is going to start JAKAFI soon. Hematuria/cystitis possible, labs nl. On eliquis for SVT. R/O Adeno/BK virus post transplant setting. He is in remission with regards to MDS. Empric Rx UTI, pending routine cx. He does not want a transfer to [facility] at this time, is to follow up at [facility] next wk I examined this patient and my medical decision-making was reviewed with the Advanced Practice Nurse, Marilynn Griffin. I agree with the documented findings, disposition and treatment plan as described except to the extent set forth below. Inpatient Charges Provider: Dr. Norris Cabral Consult - Inpatient: [id number]
[2019-01-12 12:59] LABS: BUN/Creatinine Ratio 27 (6-26); Blood Urea Nitrogen 29 mg/dL (8-23); Calcium 8.7 mg/dL (8.6-10.3); Carbon Dioxide 20 mEq/L (23-29); Chloride 106 mEq/L (98-107); Glucose 181 mg/dL (70-105); Osmolality,Calculated 294 (280-300); Sodium 137 mEq/L (136-145); eGFR For African Americans > 60 (> 60); eGFR For Non-African Americans > 60 (> 60)
[2019-01-12] MEDS: Artificial Tears SOLN 15 ML BOTTLE BOTH EYES SCH (20:54)
[2019-01-12] MEDS: Insulin DETEMIR 100 UNIT/ML X5UNITS SQ SCH (21:08)
[2019-01-13 05:11] LABS: Hematocrit 40.1 % (37.5-50.1); Hemoglobin 13.5 g/dL (12.9-16.9); Mean Corpuscular HGB Conc 33.7 g/dL (31.6-35.5); Mean Corpuscular Hemoglobin 33.3 pg (28.0-33.3); Mean Platelet Volume 10.5 fL (9.4-12.4); Platelet Count 177 K/mcL (140-400); Red Blood Count 4.05 M/mcL (4.19-5.50); Red Cell Distribution Width 13.6 % (11.5-14.5); White Blood Count 8.1 K/mcL (4.3-11.1)
[2019-01-13 05:33] LABS: Alanine Aminotransferase 167 Units/L (7-52); Albumin 3.7 g/dL (3.5-5.7); Albumin/Globulin Ratio 1.3 (1.1-2.2); Alkaline Phosphatase 266 Units/L (34-104); Aspartate Amino Transferase 103 Units/L (13-39); BUN/Creatinine Ratio 33 (6-26); Bilirubin,Direct 0.7 mg/dL (0.0-0.2); Bilirubin,Indirect 0.6 mg/dL (0.0-1.2); Bilirubin,Total 1.3 mg/dL (0.3-1.0); Blood Urea Nitrogen 28 mg/dL (8-23); Carbon Dioxide 21 mEq/L (23-29); Chloride 106 mEq/L (98-107); Globulin 2.8 g/dL (2.4-3.5); Glucose 108 mg/dL (70-105); Osmolality,Calculated 296 (280-300); Potassium 3.9 mEq/L (3.5-5.1); Sodium 140 mEq/L (136-145); Total Protein 6.5 g/dL (6.4-8.9); eGFR For African Americans > 60 (> 60); eGFR For Non-African Americans > 60 (> 60)
[2019-01-13 07:20] VITALS: BP 134/92
[2019-01-13] MEDS: Insulin LISPRO 300 UNITS/3 ML VIAL SQ SCH (07:41)
[2019-01-13] MEDS: Apixaban 5 MG TABLET PO SCH (09:43)
[2019-01-13] MEDS: cefTRIAXone 1,000 MG in Water for inj. (sterile) 10 ML IVP SCH (09:43)
[2019-01-13] MEDS: Loratadine 10 MG TABLET PO SCH (09:44)
[2019-01-13] MEDS: predniSONE 20 MG TABLET PO SCH (09:44)
[2019-01-13] MEDS: Aspirin Enteric Coated 81 MG Tablet PO SCH (09:44)
[2019-01-13] MEDS: Gabapentin 400 MG CAPSULE PO SCH (09:44)
[2019-01-13] MEDS: Artificial Tears SOLN 15 ML BOTTLE BOTH EYES SCH (09:45)
[2019-01-13] MEDS: levETIRAcetam 250 MG TABLET PO SCH (09:45)
--- NOTE | 2019-01-13 11:17 | Discharge Summary ---
- NOTES TO OUTPATIENT PROVIDER Notes to Outpatient Provider: 63M w hx MDS s/p SCT '17 @[facility] c/b GVH on IS, presented with dysuria and hematuria. CT showing cystitis and R ureteritis. UCx no growth, and no fever or leukocytosis. Did have mild AD and gap acidosis which improved w fluids and holding bactrim. Onc consult - sent labs for BK, CMV, adeno. Eliquis held. No change in symptoms at discharge but not worsening and no blood clots in urine; will d/c on keflex until outpatient [facility] Onc appt in 5 days. Orders not resulted at time of discharge: 01/12/19 12:41 Adenovirus Qualitative PCR Routine CMV Qualitative PCR (pos neg) Routine BK Virus DNA, Quantitative Routine Date of Encounter: 01/13/19 Time of Encounter: 11:14 Hospital course: Dear Doctors, I recently had the opportunity to care for this patient during their recent hospital stay at [facility]. 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 He denied any fevers and not passing clots in urine. In the ED, CT showing cystitis and ureteritis, concerning for complicated UTI in immunocompromised host c/b bleeding while on anticoagulant. Labs also revealed lactate 2, anion gap 13, Cr 1.25. In the hospital, patient given fluids and abx. He had improvement in his RLQ abd pain, but no change in his urinary symptoms. Urine culture without growth. He did continue to have hematuria (on discharge, urine had brownish-red hue but definitely not mahesh blood and no clots). Oncology was consulted who recommended send out testing for BK, CMV, and adenovirus. His lactate and gap acidosis i mproved. He will be discharged home with PO keflex and holding Eliquis until outpatient [facility] Onc appointment in 5 days. Dx: hemorrhagic cystitis, AD, anion gap metabolic acidosis, elevated lactate Labs at discharge: wbc 8.1, hb 13.5, inr 1.0, na 140, cl 106, CO2 21, bun 28, cr 0.86, tbili 1.3, dbili 0.7, alt 167, ast 103, alkphos 266 Pertinent tests/consults: Onc consult, CT a/p suggestive of cystitis/ureteritis Follow up: [facility] Onc 01/18 Tests pending: viral PCR for CMV, BK, adeno Med changes: - new keflex 500 bid, last dose 01/18 - hold Eliquis 5 bid until Onc follow up 01/18 - hold Bactrim ppx until Onc follow up 01/18 Mental status: awake, fully oriented Code status: Habilitation Assistant spent on discharge: 35 minutes It has been my pleasure participating in this patient's care. Please contact me with any questions or concerns regarding their hospital stay. Sincerely, Brenton Toribio MD - Discharge Medications Prescriptions: New cephALEXin [Keflex] 500 mg PO BID #10 capsule Continued Sulfamethoxazole/Trimeth DS [Bactrim Ds] 2 tab PO MOFR Fluconazole [Diflucan] 400 mg PO 0700 Sirolimus [Rapamune] 0.5 mg PO 0700 Aspirin [Lo-Dose Aspirin EC] 81 mg PO 0700 Acyclovir [Zovirax] 800 mg PO 0700,1900 Metoprolol [Lopressor] 12.5 mg PO 0700,1900 Repaglinide [Prandin] 1 mg PO 0700,1900 metFORMIN [Glucophage] 1,000 mg PO BIDWM levETIRAcetam [Roweepra] 1,500 mg PO 0700,1900 Duloxetine HCl [Cymbalta] 60 mg PO 0700 Ursodiol 250 mg PO 0700,1000,1900 Calcium Carbonate/Vitamin D3 [Calcium 500-Vit D3 400 Chew Tb] 1 tab PO 0700 Gabapentin [Neurontin] 800 mg PO 0700,1900 Mycophenolate Mofetil [Cellcept] 1,000 mg PO 0600,1800 predniSONE [PredniSONE] 40 mg PO 0700 Discontinued Apixaban [Eliquis] 5 mg PO 1900 Home Medications: Acyclovir [Zovirax] 800 mg PO 0700,1900 12/27/16 [History] Aspirin [Lo-Dose Aspirin EC] 81 mg PO 0700 12/27/16 [History] Fluconazole [Diflucan] 400 mg PO 0700 12/27/16 [History] Sirolimus [Rapamune] 0.5 mg PO 0700 12/27/16 [History] Sulfamethoxazole/Trimeth DS [Bactrim Ds] 2 tab PO MOFR 12/27/16 [History] Calcium Carbonate/Vitamin D3 [Calcium 500-Vit D3 400 Chew Tb] 1 tab PO 0700 01/11/19 [History] Duloxetine HCl [Cymbalta] 60 mg PO 0700 01/11/19 [History] Gabapentin [Neurontin] 800 mg PO 0700,1900 01/11/19 [History] Metoprolol [Lopressor] 12.5 mg PO 0700,19001/11/19 [History] Mycophenolate Mofetil [Cellcept] 1,000 mg PO 0600,1800 01/11/19 [History] Repaglinide [Prandin] 1 mg PO 0700,1900 01/11/19 [History] Ursodiol 250 mg PO 0700,1000,1900 01/11/19 [History] levETIRAcetam [Roweepra] 1,500 mg PO 0700,1900 01/11/19 [History] metFORMIN [Glucophage] 1,000 mg PO BIDWM 01/11/19 [History] predniSONE [PredniSONE] 40 mg PO 0700 01/11/19 [History] cephALEXin [Keflex] 500 mg PO BID #10 capsule 01/13/19 [Rx] Allergies/Adverse Reactions: Allergy/AdvReac Type Severity Reaction Status Date / Time divalproex sodium Allergy Confusion Verified 01/11/19 18:52 [From Depakote] Iodinated Contrast Media Allergy Seizure Verified 01/11/19 18:52 [Iodinated Contrast Media - IV Dye] Penicillins Allergy Rash Verified 01/11/19 18:52 Date of admission: 01/11/19 18:57 Primary care physician: Josse Alfonso DO Consults: 01/11/19 18:13 Consult to Oncology [CONS] Routine Consulting Provider: Oncology [facility] Reason for Consult: cystitis/ureteritis with hematuria, s/p SCT '17 c/b GVH on IS, suspect simple infection but want to make sure not rare complication of GVH Call Completed: No 01/11/19 19:02 Consult to Urology [CONS] Stat Consulting Provider: Urology Cindy Reason for Consult: Hematuria, anticoagulant therapy, ureteritis, failed outpatient therapy Dr. Rowland Time Notified: 17:00 Call Completed: Yes - Constitutional Vitals: Temp Pulse Resp BP Pulse Ox 98.1 F 84 18 134/92 97 01/13/19 07:15 01/13/19 07:15 01/13/19 07:15 01/13/19 07:15 01/13/19 07:15 Exam: General: NAD, good eye contact, chronically ill appearing, wearing sunglasses Thoracic: Normal breath sounds b/l, no wheezing or crackles Cardio: Normal S1 and S2, regular rate and rhythm. Does have faint systolic murmur Abdomen: Soft, mildly tender RLQ, nondistended Extremities: Warm, well perfused. DP pulses 2+ b/l. No edema Skin: Intact. No rashes, bruises, or ulcers Neuro: Awake, fully oriented. Good memory, concentration, attention. Speech fluent. - Patient Status Disposition: Home, Self-Care Condition: Fair Functional capacity at discharge: independent ambulation Overall status at discharge: patient is not back to baseline - Discharge Instructions Follow Up With: Josse Alfonso DO [Primary Care Provider] - - Diet and Activity Activity: resume usual activities as tolerated Diet: advance to your usual diet
[2019-01-13] MEDS ORDERED: FLU Vac QV 19-20 (6Month+)/PF 0.5 ML SYRINGE IM ONE (12:26)
--- NOTE | 2019-01-13 16:03 | Urology - Consult Note ---
Date of Encounter: 01/13/19 (Consult completed 01/12/2019) Time of Encounter: 16:01 - Assessment and Plan (1) Hematuria Status: Acute Assessment and plan: Questionable UA. Patient on antibody for potential ureterolysis and cystitis. Bladder abnormality on CT likely inflammation but malignancy will be ruled out on outpatient basis. Upper tracts normal on CT. Plan: Mild spurring throughout patient follow-up for cystoscopy. Qualifiers: Qualified Code(s): R31.9 - Hematuria, unspecified (2) Ureteritis Status: Acute Assessment and plan: Some right flank pain and CT suggestive of some ureteritis. Question UA with culture pending. Patient currently improving on IV antibiotics. Plan: No indications for surgical intervention. Home on oral advise as determined by primary service. (3) Structural abnormality of bladder Status: Acute Assessment and plan: Significant bladder abnormality felt to be most likely related to inflammatory change on CT. Will need outpatient cystoscopy to rule out malignancy. Plan: My office will arrange for outpatient follow-up for cystoscopy. 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 Blood in urine started 6 days ago (last ), at same time of mild dysuria. Patient denies ever seeing any clots, but does state that dysuria/burning has increased in intensity and he's noticed feeling like having to urinate numerous times day and night but only a little comes out. Seems dark red to dark brown tea/coffee colored urine. No fevers. Pain did start to move over to his right side and back on Thursday, so his daughter made him go to urgent In the ED, vitals T97.9, HR 70s, RR 16, SBP 110-140s, satting 96+% on RA. Labs notable for wbc 10, hb 15, plt 220, inr 1, na 134, co2 18, bun 30, cr 1.24, Tbili 1.6, Dbili 0.9 CT a/p suggests cystitis w R-sided ureteritis. Past Med Surg Social Fam HX - Past Medical History Medical history: atrial fibrillation, cancer, coronary artery disease, hyperlipidemia, hypertension, myocardial infarction, pulmonary embolus, seizures, other Additional medical history: Wears sunglasses per doctor d/t eye issues with MDS "feels like sand in eyes" Psychiatric history: anxiety, depression - Past Surgical History Surgical History: angioplasty/stent, coronary bypass (CABG), other Additional surgical history: STEM CELL PLACEMENT - Social History Smoking Status: Former smoker Smokeless Tobacco Status: No Alcohol use: none Drug use: none Medications and Allergies Acyclovir [Zovirax] 800 mg PO 0700,189912/27/16 [History] Aspirin [Lo-Dose Aspirin EC] 81 mg PO 69912/27/16 [History] Fluconazole [Diflucan] 400 [place] 69912/27/16 [History] Sirolimus [Rapamune] 0.5 mg PO 69912/27/16 [History] Sulfamethoxazole/Trimeth DS [Bactrim Ds] 2 tab PO MOFR 12/27/16 [History] Calcium Carbonate/Vitamin D3 [Calcium 500-Vit D3 400 Chew Tb] 1 [place] 69901/11/19 [History] Duloxetine HCl [Cymbalta] 60 mg PO 0701/11/19 [History] Gabapentin [Neurontin] 800 mg PO 0700,189901/11/19 [History] Metoprolol [Lopressor] 12.5 mg PO 0700,189901/11/19 [History] Mycophenolate Mofetil [Cellcept] 1,000 mg PO 0600,1800 01/11/19 [History] Repaglinide [Prandin] 1 mg PO 0700,189901/11/19 [History] Ursodiol 250 mg PO 0700,1000,189901/11/19 [History] levETIRAcetam [Roweepra] 1,500 mg PO 0700,0 01/11/19 [History] metFORMIN [Glucophage] 1,000 mg PO BIDWM 01/11/19 [History] predniSONE [PredniSONE] 40 mg PO 0700 01/11/19 [History] cephALEXin [Keflex] 500 mg PO BID #10 capsule 01/13/19 [Rx] Allergy/AdvReac Type Severity Reaction Status Date / Time divalproex sodium Allergy Confusion Verified 01/11/19 18:52 [From Depakote] Iodinated Contrast Media Allergy Seizure Verified 01/11/19 18:52 [Iodinated Contrast Media - IV Dye] Penicillins Allergy Rash Verified 01/11/19 18:52 Review of Systems - Constitutional no chills, no fever(s) - EENT Nose, mouth and throat: no dizziness, no headache(s) - Cardiovascular no chest pain, no diaphoresis - Respiratory no cough, no dyspnea - Gastrointestinal no nausea, no vomiting - Genitourinary hematuria, no flank pain - Musculoskeletal no back pain, no muscle weakness - Integumentary no lesions, no rash - Neurological no confusion, no sensory deficit - Psychiatric no anxiety, no confusion - Hematologic/Lymphatic no easy bleeding, no easy bruising - Allergic/Immunologic no throat swelling, no wheezing Exam Initial Vital Signs Temp Pulse Resp BP Pulse Ox 97.9 F 72 16 136/79 98 01/11/19 11:31 01/11/19 11:31 01/11/19 11:31 01/11/19 11:31 01/11/19 11:31 - General physical appearance Present: well developed, well nourished, no distress - Eyes Present: normal ocular movement. Absent: icteric - ENT Present: normal mucosa - Neck Present: trachea midline - Respiratory Present: normal respiratory effort - Abdomen Abdomen: Present: distended - Integumentary Present: no rash, no growths, no abnormal pigmentation - Neurologic Present: normal coordination. Absent: disoriented - Musculoskeletal Present: normal gait Urology Results - Labs 01/13/19 04:44 01/13/19 04:44 Abnormal lab results RBC 4.05 M/mcL (4.19-5.50) L 01/13/19 04:44 APTT 36.8 Seconds (26.0-36.0) H 01/11/19 11:51 Sodium 134 mEq/L (136-145) L 01/11/19 11:51 Carbon Dioxide 21 mEq/L (23-29) L 01/13/19 04:44 BUN 28 mg/dL (8-23) H 01/13/19 04:44 Est GFR (Non-Af Amer) 59 (> 60) L 01/11/19 11:51 BUN/Creatinine Ratio 33 (6-26) H 01/13/19 04:44 Glucose 108 mg/dL (70-105) H 01/13/19 04:44 POC Glucose 227 mg/dL (70-99) H 01/12/19 20:35 Lactic Acid 2.3 mmol/L (0.5-2.2) H 01/12/19 04:20 Total Bilirubin 1.3 mg/dL (0.3-1.0) H 01/13/19 04:44 Direct Bilirubin 0.7 mg/dL (0.0-0.2) H 01/13/19 04:44 AST 103 Units/L (13-39) H 01/13/19 04:44 ALT 167 Units/L (7-52) H 01/13/19 04:44 Alkaline Phosphatase 266 Units/L (34-104) H 01/13/19 04:44 Troponin I 0.05 ng/mL (< 0.04) H* 01/11/19 11:51 Serum Total Protein 5.9 g/dL (6.4-8.9) L 01/12/19 04:20 Lipase 111 Units/L (11-82) H 01/11/19 11:51 Urine Color Red (Yellow) A 01/11/19 11:42 Urine Clarity Cloudy (Clear) A 01/11/19 11:42 Urine Protein >=1000 mg/dL (Neg-Trace) H 01/11/19 11:42 Urine Glucose (UA) 100 mg/dL (Normal) H 01/11/19 11:42 Urine Blood Large (Negative) H 01/11/19 11:42 Urine Bilirubin Small (Negative) H 01/11/19 11:42 Ur Leukocyte Esterase Small (Negative) H 01/11/19 11:42 Urine Microscopic RBC TNTC per hpf (0-3) H 01/11/19 11:42 Urine Microscopic WBC 5-15 per hpf (0-3) H 01/11/19 11:42 Ur Culture Indicated? YES (NO) A 01/11/19 11:42 Acetaminophen < 10 mcg/mL (10-20) L 01/11/19 11:51 Diabetes panel 01/13/19 Range/Units 04:44 Sodium 140 (136-145) mEq/L Potassium 3.9 (3.5-5.1) mEq/L Chloride 106 (98-107) mEq/L Carbon Dioxide 21 L (23-29) mEq/L BUN 28 H (8-23) mg/dL Creatinine 0.86 (0.70-1.30) mg/dL Glucose 108 H (70-105) mg/dL Calcium 9.0 (8.6-10.3) mg/dL AST 103 H (13-39) Units/L ALT 167 H (7-52) Units/L Alkaline Phosphatase 266 H (34-104) Units/L Albumin 3.7 (3.5-5.7) g/dL Calcium panel 01/13/19 Range/Units 04:44 Calcium 9.0 (8.6-10.3) mg/dL Albumin 3.7 (3.5-5.7) g/dL Pituitary panel 01/13/19 Range/Units 04:44 Sodium 140 (136-145) mEq/L Potassium 3.9 (3.5-5.1) mEq/L Chloride 106 (98-107) mEq/L Carbon Dioxide 21 L (23-29) mEq/L BUN 28 H (8-23) mg/dL Creatinine 0.86 (0.70-1.30) mg/dL Glucose 108 H (70-105) mg/dL Calcium 9.0 (8.6-10.3) mg/dL Adrenal panel 01/13/19 Range/Units 04:44 Sodium 140 (136-145) mEq/L Potassium 3.9 (3.5-5.1) mEq/L Chloride 106 (98-107) mEq/L Carbon Dioxide 21 L (23-29) mEq/L BUN 28 H (8-23) mg/dL Creatinine 0.86 (0.70-1.30) mg/dL Glucose 108 H (70-105) mg/dL Calcium 9.0 (8.6-10.3) mg/dL Total Bilirubin 1.3 H (0.3-1.0) mg/dL AST 103 H (13-39) Units/L ALT 167 H (7-52) Units/L Alkaline Phosphatase 266 H (34-104) Units/L Albumin 3.7 (3.5-5.7) g/dL All other labs normal. - Imaging CT scan - abdomen: image reviewed CT scan - pelvis: image reviewed (CT images reviewed and interpreted independently) Consult Discharge Plan - Plan Instructions: Urinary Tract Infection in Men (DC), Acute Hematuria (DC) Referrals: Josse Alfonso DO [Primary Care Provider] - (Web request. Office will call patient with date and time of appointment. Thank you) Prescriptions: cephALEXin [Keflex] 500 mg PO BID #10 capsule Transmission Status: Received by [facility]
--- NOTE | 2019-01-13 20:11 | Oncology Inp Progress Note ---
Date of Encounter: 01/14/19 Time of Encounter: 08:00 (1) Hematuria Status: Acute Assessment and plan: MDS s/p SCT at [facility] in remission with reagrds to labs. 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 UC pending. Hematuria not clearing up. Eliquis to be held. Urology to evaluate patient for cystoscopy/irrigation Plan d.w pt and family this AM. Qualifiers: Qualified Code(s): R31.9 - Hematuria, unspecified Oncology: Subj Interval history: Patient seen this AM with continued hematuria. He reported clearing of urine on occasion - Constitutional General appearance: no acute distress - Head Head exam: Present: atraumatic, normal inspection - Eye Additional comments: dryness - ENT ENT exam: Present: mucous membranes dry - Respiratory Respiratory exam: Present: CTAB - Cardiovascular Cardiovascular exam: Present: +S1, +S2 - GI/Abdominal GI/Abdominal exam: Present: normal bowel sounds, soft - Neurological Exam Neurological exam: Present: alert, oriented X3 Oncology: Obj Data - Labs CBC & Chem 7: 01/13/19 04:44 01/13/19 04:44 Consult Discharge Plan - Plan Instructions: Urinary Tract Infection in Men (DC), Acute Hematuria (DC) Referrals: Josse Alfonso DO [Primary Care Provider] - (Web request. Office will call patient with date and time of appointment. Thank you) Prescriptions: cephALEXin [Keflex] 500 mg PO BID #10 capsule Transmission Status: Received by [facility] Inpatient Charges Provider: Dr. Norris Cabral Follow up - Inpatient: [id number]
[2019-01-14 10:36] LABS: BK Virus Source WHOLE BLOOD
[2019-01-14 11:29] LABS: BK Virus Interpretation NOT DETECTED (Not Detected); BK Virus Quant. <2.6 log
[2019-01-16 10:06] LABS: Adenovirus Qual PCR DETECTED
[2019-01-16 10:19] LABS: Cytomegalovirus DNA (PCR) NOT DETECTED
== END 2019-01-13 12:55 | disposition home or self-care (01) ==
LOC: 3ANU 11:28 → EMEROOARM 11:28 → SUATTDRO 18:57 → 3ANU 20:08
PROVIDERS: ADMIT Internal Medicine; ATTEND Internal Medicine

== ENCOUNTER 2019-01-26 10:50 | Inpatient (IN) ==
[2019-01-26 11:50] LABS: Bilirubin,Urine Small (Negative); Blood,Urine Large (Negative); Clarity,Urine Clear (Clear); Color,Urine Dark Yellow (Yellow); Glucose,Urine (UA) Normal (Normal); Ketones,Urine Negative (Negative); Leukocyte Esterase,Urine Small (Negative); Nitrite,Urine Negative (Negative); PH,Urine 6.5 pH Units (5.0-8.0); Protein,Urine 100 mg/dL (Neg-Trace); Urobilinogen,Urine Normal (Normal)
[2019-01-26 11:53] LABS: Hyaline Casts,Urine None Seen per lpf (None-Few); Squamous Epithelial Cell,Urine Many per lpf (None-Few)
[2019-01-26] MEDS: 0.9 % Sodium Chloride 1,000 ML IVC SCH ×5 (11:56→23:17)
[2019-01-26 12:14] LABS: Hematocrit 31.4 % (37.5-50.1); Hemoglobin 10.3 g/dL (12.9-16.9); Mean Corpuscular Volume 97.8 fL (83.0-100.0); Red Blood Count 3.21 M/mcL (4.19-5.50); White Blood Count 8.3 K/mcL (4.3-11.1)
[2019-01-26 12:15] LABS: Eosinophils % 0.2 %; Immature Granulocytes % 0.2 % (0-4); Lymphocytes # 1.7 K/mcL (0.6-4.6); Lymphocytes % 20.5 %; Mean Corpuscular HGB Conc 32.8 g/dL (31.6-35.5); Mean Corpuscular Hemoglobin 32.1 pg (28.0-33.3); Mean Platelet Volume 10.6 fL (9.4-12.4); Monocytes # 0.9 K/mcL (0.0-1.3); Monocytes % 10.3 %; Neutrophils # 5.7 K/mcL (1.6-8.9); Platelet Count 179 K/mcL (140-400); Red Cell Distribution Width 13.9 % (11.5-14.5); Segmented Neutrophils % 68.8 %
[2019-01-26 12:18] LABS: Bacteria,Urine Few per hpf (None-Few); RBC,Urine 15-30 per hpf (0-3)
[2019-01-26 12:43] LABS: Alanine Aminotransferase 169 Units/L (7-52); Albumin 3.3 g/dL (3.5-5.7); Albumin/Globulin Ratio 1.3 (1.1-2.2); Alkaline Phosphatase 224 Units/L (34-104); Aspartate Amino Transferase 112 Units/L (13-39); BUN/Creatinine Ratio 26 (6-26); Bilirubin,Direct 1.1 mg/dL (0.0-0.2); Bilirubin,Indirect 0.6 mg/dL (0.0-1.2); Bilirubin,Total 1.7 mg/dL (0.3-1.0); Blood Urea Nitrogen 33 mg/dL (8-23); Calcium 9.2 mg/dL (8.6-10.3); Carbon Dioxide 25 mEq/L (23-29); Chloride 99 mEq/L (98-107); Globulin 2.5 g/dL (2.4-3.5); Glucose 121 mg/dL (70-105); Osmolality,Calculated 283 (280-300); Potassium 3.8 mEq/L (3.5-5.1); Sodium 132 mEq/L (136-145); Total Protein 5.8 g/dL (6.4-8.9); eGFR For African Americans > 60 (> 60); eGFR For Non-African Americans 58 (> 60)
[2019-01-26] MEDS ORDERED: cefTRIAXone 1,000 MG in Water for inj. (sterile) 10 ML IVP ONE (12:47)
[2019-01-26] MEDS ORDERED: Gentamicin 80 MG in 0.9 % Sodium Chloride 100 ML IVPB STA (12:47)
[2019-01-26] MEDS ORDERED: Ondansetron 4 MG/2 ML VIAL IVP PRN (13:16)
[2019-01-26] MEDS ORDERED: *HR* HYDROcodone/Acet 5/325 mg TABLET PO PRN (13:16)
[2019-01-26] MEDS ORDERED: Naloxone 0.4 MG/ML INJ IVP PRN (13:16)
[2019-01-26] MEDS: Cefepime HCl 2,000 MG in 0.9 % Sodium Chloride Mini Bag 100 ML IVPB SCH (15:46)
[2019-01-26] MEDS ORDERED: Cefepime HCl 1,000 MG in Water for inj. (sterile) 10 ML IVP SCH (16:00)
[2019-01-26] MEDS ORDERED: Hydrocortisone Sodium Succ 100 MG/2 ML VIAL IVP ONE (18:22)
[2019-01-26] MEDS: URSODIOL 250 MG PO SCH (19:11)
[2019-01-26] MEDS ORDERED: D5% in Water 1,000 ML IVC PRN (20:13)
[2019-01-26] MEDS ORDERED: *HR* Dextrose 50 % in Water (Syg) 50 ML SYRINGE IVP PRN (20:13)
[2019-01-26] MEDS ORDERED: Dextrose Gel 15 GM/37.5 ML TUBE PO PRN ×2 (20:13)
[2019-01-26] MEDS: levETIRAcetam 250 MG TABLET PO SCH (20:24)
[2019-01-26] MEDS: Gabapentin 400 MG CAPSULE PO SCH (20:24)
[2019-01-26] MEDS ORDERED: RUXOLITINIB PHOSPHATE 10 MG PO SCH (21:00)
[2019-01-26] MEDS: Insulin LISPRO 300 UNITS/3 ML VIAL SQ SCH (21:10)
[2019-01-27 05:00] LABS: Hematocrit 29.5 % (37.5-50.1); Hemoglobin 9.4 g/dL (12.9-16.9); Mean Corpuscular HGB Conc 31.9 g/dL (31.6-35.5); Mean Corpuscular Hemoglobin 32.9 pg (28.0-33.3); Mean Corpuscular Volume 103.1 fL (83.0-100.0); Mean Platelet Volume 10.6 fL (9.4-12.4); Platelet Count 157 K/mcL (140-400); Red Blood Count 2.86 M/mcL (4.19-5.50); Red Cell Distribution Width 14.1 % (11.5-14.5); White Blood Count 3.8 K/mcL (4.3-11.1)
[2019-01-27 05:14] LABS: BUN/Creatinine Ratio 26 (6-26); Blood Urea Nitrogen 23 mg/dL (8-23); Calcium 8.5 mg/dL (8.6-10.3); Carbon Dioxide 23 mEq/L (23-29); Chloride 111 mEq/L (98-107); Glucose 139 mg/dL (70-105); Osmolality,Calculated 298 (280-300); Potassium 3.7 mEq/L (3.5-5.1); Sodium 141 mEq/L (136-145); eGFR For African Americans > 60 (> 60); eGFR For Non-African Americans > 60 (> 60)
[2019-01-27] MEDS: Cefepime HCl 2,000 MG in 0.9 % Sodium Chloride Mini Bag 100 ML IVPB SCH ×2 (05:22→17:13)
[2019-01-27] MEDS: POSACONAZOLE 300 MG PO SCH (08:27)
[2019-01-27] MEDS: URSODIOL 250 MG PO SCH (08:28)
[2019-01-27] MEDS: Ruxolitinib Phosphate [Jakafi] 10 MG PO SCH ×2 (08:29→22:51)
[2019-01-27] MEDS: Gabapentin 400 MG CAPSULE PO SCH ×2 (08:30→21:08)
[2019-01-27] MEDS: Cholecalciferol (D-3) 1,000 UNIT (25MCG) TABLET PO SCH (08:30)
[2019-01-27] MEDS: levETIRAcetam 250 MG TABLET PO SCH ×2 (08:31→21:08)
[2019-01-27] MEDS: predniSONE 20 MG TABLET PO SCH (08:31)
[2019-01-27] MEDS: Insulin LISPRO 300 UNITS/3 ML VIAL SQ SCH ×4 (08:31→21:07)
[2019-01-27] MEDS: Acetaminophen 325 MG TABLET PO PRN (12:17)
[2019-01-28] MEDS: Acetaminophen 325 MG TABLET PO PRN (03:30)
[2019-01-28] MEDS: Cefepime HCl 2,000 MG in 0.9 % Sodium Chloride Mini Bag 100 ML IVPB SCH (05:50)
[2019-01-28] MEDS: levETIRAcetam 250 MG TABLET PO SCH ×2 (07:35→20:09)
[2019-01-28] MEDS: Sulfamethoxazole/Trimeth DS 1 EACH TABLET PO SCH ×2 (07:35→18:10)
[2019-01-28] MEDS: predniSONE 20 MG TABLET PO SCH (07:35)
[2019-01-28] MEDS: Gabapentin 400 MG CAPSULE PO SCH ×2 (07:35→20:08)
[2019-01-28] MEDS: Cholecalciferol (D-3) 1,000 UNIT (25MCG) TABLET PO SCH (07:36)
[2019-01-28] MEDS: POSACONAZOLE 300 MG PO SCH (07:36)
[2019-01-28] MEDS: Ruxolitinib Phosphate [Jakafi] 10 MG PO SCH ×2 (07:37→20:08)
[2019-01-28] MEDS: Insulin LISPRO 300 UNITS/3 ML VIAL SQ SCH ×4 (07:37→20:09)
[2019-01-28] MEDS: Ampicillin 2 GM in 0.9 % Sodium Chloride Mini Bag 100 ML IVPB SCH ×3 (10:22→23:51)
[2019-01-28 11:17] LABS: Hematocrit 31.3 % (37.5-50.1); Hemoglobin 10.3 g/dL (12.9-16.9); Immature Granulocytes % 0.4 % (0-4); Lymphocytes # 0.9 K/mcL (0.6-4.6); Lymphocytes % 11.4 %; Mean Corpuscular HGB Conc 32.9 g/dL (31.6-35.5); Mean Corpuscular Hemoglobin 32.4 pg (28.0-33.3); Mean Corpuscular Volume 98.4 fL (83.0-100.0); Mean Platelet Volume 11.2 fL (9.4-12.4); Monocytes # 0.7 K/mcL (0.0-1.3); Monocytes % 9.4 %; Neutrophils # 5.9 K/mcL (1.6-8.9); Platelet Count 183 K/mcL (140-400); Red Blood Count 3.18 M/mcL (4.19-5.50); Red Cell Distribution Width 14.2 % (11.5-14.5); Segmented Neutrophils % 78.8 %
[2019-01-28 11:22] LABS: White Blood Count 7.5 K/mcL (4.3-11.1)
[2019-01-28 11:32] LABS: Blood Urea Nitrogen 20 mg/dL (8-23); Calcium 8.7 mg/dL (8.6-10.3); Carbon Dioxide 20 mEq/L (23-29); Chloride 102 mEq/L (98-107); Glucose 267 mg/dL (70-105); Osmolality,Calculated 292 (280-300); Potassium 3.5 mEq/L (3.5-5.1); Sodium 135 mEq/L (136-145)
[2019-01-28 12:36] LABS: BUN/Creatinine Ratio 21 (6-26); eGFR For African Americans > 60 (> 60); eGFR For Non-African Americans > 60 (> 60)
[2019-01-28] MEDS: *HR* Heparin 5,000 UNIT/ML VIAL SQ SCH (18:11)
[2019-01-29 03:09] LABS: Hematocrit 32.2 % (37.5-50.1); Hemoglobin 10.6 g/dL (12.9-16.9); Immature Granulocytes % 0.4 % (0-4); Lymphocytes % 23.2 %; Mean Corpuscular HGB Conc 32.9 g/dL (31.6-35.5); Mean Corpuscular Hemoglobin 32.6 pg (28.0-33.3); Mean Corpuscular Volume 99.1 fL (83.0-100.0); Mean Platelet Volume 10.6 fL (9.4-12.4); Monocytes % 7.4 %; Platelet Count 163 K/mcL (140-400); Red Blood Count 3.25 M/mcL (4.19-5.50); Red Cell Distribution Width 14.2 % (11.5-14.5); Segmented Neutrophils % 68.9 %; White Blood Count 8.1 K/mcL (4.3-11.1)
[2019-01-29 03:10] LABS: Basophils % 0.1 %; Lymphocytes # 1.9 K/mcL (0.6-4.6); Monocytes # 0.6 K/mcL (0.0-1.3); Neutrophils # 5.6 K/mcL (1.6-8.9)
[2019-01-29 03:28] LABS: BUN/Creatinine Ratio 19 (6-26); Blood Urea Nitrogen 18 mg/dL (8-23); Calcium 9.1 mg/dL (8.6-10.3); Carbon Dioxide 26 mEq/L (23-29); Chloride 102 mEq/L (98-107); Glucose 73 mg/dL (70-105); Osmolality,Calculated 290 (280-300); Potassium 3.2 mEq/L (3.5-5.1); Sodium 140 mEq/L (136-145); eGFR For African Americans > 60 (> 60); eGFR For Non-African Americans > 60 (> 60)
[2019-01-29] MEDS: *HR* Heparin 5,000 UNIT/ML VIAL SQ SCH ×2 (06:06→17:25)
[2019-01-29] MEDS: Ampicillin 2 GM in 0.9 % Sodium Chloride Mini Bag 100 ML IVPB SCH ×3 (06:06→17:25)
[2019-01-29] MEDS: Acetaminophen 325 MG TABLET PO PRN (06:16)
[2019-01-29] MEDS: levETIRAcetam 250 MG TABLET PO SCH ×2 (08:19→20:55)
[2019-01-29] MEDS: Gabapentin 400 MG CAPSULE PO SCH ×2 (08:19→20:55)
[2019-01-29] MEDS: predniSONE 20 MG TABLET PO SCH (08:19)
[2019-01-29] MEDS: Insulin LISPRO 300 UNITS/3 ML VIAL SQ SCH ×4 (08:20→20:58)
[2019-01-29] MEDS: POSACONAZOLE 300 MG PO SCH (08:20)
[2019-01-29] MEDS: Cholecalciferol (D-3) 1,000 UNIT (25MCG) TABLET PO SCH (08:20)
[2019-01-29] MEDS: Ruxolitinib Phosphate [Jakafi] 10 MG PO SCH ×2 (08:21→20:55)
[2019-01-29] MEDS ORDERED: Simethicone 80 MG TAB.CHEW PO PRN (21:07)
[2019-01-30] MEDS: Ampicillin 2 GM in 0.9 % Sodium Chloride Mini Bag 100 ML IVPB SCH ×2 (00:49→05:37)
[2019-01-30 05:37] LABS: Hematocrit 29.8 % (37.5-50.1); Hemoglobin 9.9 g/dL (12.9-16.9); Immature Granulocytes % 0.5 % (0-4); Lymphocytes # 1.4 K/mcL (0.6-4.6); Mean Corpuscular HGB Conc 33.2 g/dL (31.6-35.5); Mean Corpuscular Hemoglobin 32.2 pg (28.0-33.3); Mean Corpuscular Volume 97.1 fL (83.0-100.0); Mean Platelet Volume 10.5 fL (9.4-12.4); Monocytes # 0.5 K/mcL (0.0-1.3); Monocytes % 8.8 %; Neutrophils # 4.1 K/mcL (1.6-8.9); Nucleated Red Blood Cells 0.3 /100 WBC (0); Platelet Count 177 K/mcL (140-400); Red Blood Count 3.07 M/mcL (4.19-5.50); Red Cell Distribution Width 14.2 % (11.5-14.5); Segmented Neutrophils % 67.7 %; White Blood Count 6.1 K/mcL (4.3-11.1)
[2019-01-30] MEDS: *HR* Heparin 5,000 UNIT/ML VIAL SQ SCH (05:38)
[2019-01-30 05:55] LABS: BUN/Creatinine Ratio 22 (6-26); Blood Urea Nitrogen 22 mg/dL (8-23); Calcium 8.7 mg/dL (8.6-10.3); Carbon Dioxide 27 mEq/L (23-29); Chloride 106 mEq/L (98-107); Glucose 114 mg/dL (70-105); Osmolality,Calculated 294 (280-300); Potassium 3.3 mEq/L (3.5-5.1); Sodium 140 mEq/L (136-145); eGFR For African Americans > 60 (> 60); eGFR For Non-African Americans > 60 (> 60)
[2019-01-30 07:56] VITALS: BP 126/78
[2019-01-30] MEDS: levETIRAcetam 250 MG TABLET PO SCH (08:18)
[2019-01-30] MEDS: Cholecalciferol (D-3) 1,000 UNIT (25MCG) TABLET PO SCH (08:18)
[2019-01-30] MEDS: predniSONE 20 MG TABLET PO SCH (08:18)
[2019-01-30] MEDS: Gabapentin 400 MG CAPSULE PO SCH (08:18)
[2019-01-30] MEDS: POSACONAZOLE 300 MG PO SCH (08:19)
[2019-01-30] MEDS: Ruxolitinib Phosphate [Jakafi] 10 MG PO SCH (08:20)
[2019-01-30] MEDS: Insulin LISPRO 300 UNITS/3 ML VIAL SQ SCH (08:22)
== END 2019-01-30 10:10 | disposition home or self-care (01) | DRG 872 ==
LOC: EMEROOARM 10:50 → 2ANU 10:50 → SUATTDRO 13:09 → 2ANU 14:34 → SUATTDRO 01-28 08:48
PROVIDERS: ADMIT Internal Medicine; ATTEND Family Medicine